=== PATIENT | female | born 1960 | race Caucasian/White ===

== ENCOUNTER 2022-03-26 08:28 | Day surgery (SDC) | payer OTHER, SELFPAY ==
[2022-03-26] VITALS (12 sets, daily range): BP systolic 115–150; BP diastolic 52–87; PULSE 66–89; RESP 14–16; TEMP 36.2–36.5; O2SAT 80–98; BMI 30.4
[2022-03-26] MEDS: LACTATED RINGERS 1000 ML 1,000 ML 100 ML IV ×5 (09:13→13:50)
[2022-03-26] MEDS: SODIUM CHLORIDE 0.9 % (FLUSH) 10 ML SYRINGE IVF (09:14)
--- NOTE | 2022-03-26 09:17 | SUR.PREOP ---
PT READY FOR SURGERY
[2022-03-26] MEDS: CEFAZOLIN 2 GM INJ IVP (10:55)
--- NOTE | 2022-03-26 11:43 | P.GSOP_ITS ---
Operative Note Date of procedure: 03/26/22 Type of Procedure: Open ventral hernia repair Procedure Description: After discussing the risks and benefits of the procedure, the patient signed informed consent.? The operative site was marked and the patient was brought to the operating room and placed on the operating table in supine position.? Care was taken to pad the patient's pressure points.?? The patient was then intubated by anesthesia.?? The operative site was then prepped and draped in the usual sterile fashion.? A time-out was then performed. A vertical incision was made above the umbilicus, over the marked hernia. Dissection was carried down into the subcutaneous tissue using cautery. The hernia sac was encountered and care was taken to not enter it. Dissection was taken down to the fascia, and the hernia sac was dissected out circumferentiall y, it was reduced. The fascial edges were then cleared circumferentially. The hernia was 2 cm in size so the decision was made to use a piece of mesh. A preperitoneal pocket was created using a combination of blunt dissection and cautery. Hemostasis appeared adequate. Once the posterior fascia was clear, a piece of medium Ventralex ST hernia mesh was placed in the preperitoneal space with care to ensure that it laid flat. This was secured into place using 2 0 PDS interrupted sutures. The tails were then trimmed and the fascial opening was closed with a running 0 Vicryl. Local anesthetic was injected into the fascia, skin and subcutaneous tissues. The incision was then closed in layers with interrupted 3-0 vicryl and with running absorbable suture. A sterile dressing was then applied. ? The patient was then woken and transported to the recovery area in stable condition. ? The patient tolerated the procedure well. Findings: 2 cm epigastric hernia with incarcerated preperitoneal fat Anesthesia: GETA Surgeon: Aydee Vuong MD Estimated blood loss (mL): 5 Condition: stable Disposition: PACU
--- NOTE | 2022-03-26 12:03 | W.ANESCHARGE ---
Anesthesia Charges Start Date/Time Anesthesia Start Date: 03/26/22 Anesthesia Start Time: 10:46 Stop Date/Time Anesthesia Stop Date: 03/26/22 Anesthesia Stop Time: 11:56 Summary Emergency: No
[2022-03-26] MEDS: OXYCODONE 5 MG TABLET PO (12:54)
--- NOTE | 2022-03-26 12:55 | W.ANESCHARGE ---
Anesthesia Charges Start Date/Time Anesthesia Start Date: 03/26/22 Anesthesia Start Time: 10:46 Stop Date/Time Anesthesia Stop Date: 03/26/22 Anesthesia Stop Time: 11:56 Summary Emergency: No
--- NOTE | 2022-04-03 15:42 | SUR.PREOP ---
preoperative document closed by this nurse. Documentation completed by Sade Castañeda RN. Closed for billing purposes. TIme based on entry to OR
== END 2022-03-26 13:51 | disposition home or self-care (01) ==
PROVIDERS: PCP Internal Medicine; Visit Provider Surgery
PROC: (CPT 49561; principal; 2022-03-26 10:00)
DX: K43.6 Other and unspecified ventral hernia with obstruction, without gangrene (principal)
CPT/HCPCS: 49561; 49568; 750; 752; A9270; C1781; J0330; J0690; J1885; J2250; J2405; J2704; J2710; J3010; J7120

== ENCOUNTER 2023-08-25 13:36 | Outpatient (CLI) | payer MEDICARE, SELFPAY ==
--- OUTSIDE RECORDS SUMMARY | 2023-08-25 13:39 | XMS_ITS | Continuity of Care Document ---
Author Name Unknown Organization Z [facility] Address [address] [place] [address] [address] [place] [address] Phone Care Team Providers Care Roller Repairer Name Role Phone Gregory SCHULTE, Fredy Unavailable Unavailable Advance Directives Directive Yes / No Effective Date File Name No Information Encounters Encounter Description Practice Location Reason(s) For Visit Diagnoses Date Provider Providers Copied on Encounter Z [facility], [address] [place] [address], [place], [address], [place] tel:[phone] [facility] No Information Gregory Daniel. [facility], [address], [place], [place], [id number] , [place]. tel:[phone] Family History Family Member Type Diagnosis Age At Onset No Information Payers Payer name Insurance type Covered libertarian ID Authoriza tion(s) No Information Social History Type Description Quantity Date Captured Comments Sex Female Smoking Status No Information Chief Complaint And Reason For Visit No Information Reason For Referral Reason For Referral No Information History Of Present Illness Encounter Date Complaint History Of Prese nt Illness No Information Functional Status Date Functional Assessmen t No Information Instructions Date Instruction Additional Infor mation No Information Assessments Type Assessment Date No Information Patient Care Teams Name Effective Dates (start - stop) Status Members No Information
--- NOTE | 2023-08-25 14:00 | CRLHL7_ITS ---
For Patients: As a result of the Century Cures Act, medical imaging exams and procedure reports are released immediately into your electronic medical record. You may view this report before your referring provider. If you have questions, please contact your health care provider. BILATERAL SCREENING MAMMOGRAM WITH COMPUTER-AIDED DETECTION TECHNIQUE: CC and MLO views were obtained. These mammographic images have been obtained using full-field digital technique. These mammographic images were interpreted with the benefit of computer-aided detection. COMPARISON FILM: 06/12/21, 05/10/19, 02/24/16. FINDINGS: There are scattered areas of fibroglandular density IMPRESSION: There is no radiographic evidence for malignancy. ASSESSMENT: BI-RADS Category 1: Negative RECOMMENDATION: Routine screening mammogram in 1 year. A lay language report of this examination will be provided to the patient. Reji Tian M.D. Diagnostic Radiologist [email or web address] MADDIE/eb / be/Dictated by: Reji Tian MD @ 08/26/2023 8:03:00 AM (Electronically Signed)
== END 2023-08-25 13:37 | disposition home or self-care (01) ==
LOC: MAMMO 13:37
PROVIDERS: PCP Internal Medicine; Visit Provider Internal Medicine
DX: Z12.31 Encounter for screening mammogram for malignant neoplasm of breast (principal)
CPT/HCPCS: 77067

== ENCOUNTER 2023-10-04 11:10 | Outpatient (CLI) | payer MEDICARE, SELFPAY ==
--- OUTSIDE RECORDS SUMMARY | 2023-10-08 10:45 | XMS_ITS | Continuity of Care Document ---
Author Name Unknown Organization Z [facility] Address [address] [place] [address] [address] [place] [address] Phone Care Team Providers Care Lambskin Trimmer Name Role Phone Gregory SCHULTE, Fredy Unavailable Unavailable Advance Directives Directive Yes / No Effective Date File Name No Information Encounters Encounter Description Practice Location Reason(s) For Visit Diagnoses Date Provider Providers Copied on Encounter Z [facility], [address] [place] [address], [place], [address], [place] tel:[phone] [facility] No Information Gregory Daniel. [facility], [address], [place], [place], [id number] , [place]. tel:[phone] Family History Family Member Type Diagnosis Age At Onset No Information Payers Payer name Insurance type Covered alliance party ID Authoriza tion(s) No Information Social History [...]
--- OUTSIDE RECORDS SUMMARY | 2023-10-08 10:45 | XMS_ITS | Clinical Summary ---
Author Name Unknown Organization [facility] Address [place], [place] [address] Care Team Providers Care Bacteriologist Medical Name Role Phone Pcp, No Primary Care Provider Unavailabl e Medications Medication Sig Dispensed Refills Start Date End Date Status BUPROPION SR 100 MG TAB take 3 tablets by mouth every am & 1 tablet in the pm 120 0 08/01/2007 Active Immunizations Name Administration Dates Next Due COVID-19 vaccine ([employer] 30mcg/0.3mL) ANNA Sanchez 04/07/2021,03/14/2021 Social History Tobacco Use Types Packs/Day Years Used Date Smoking Tobacco: Never Assessed Sex and Gender Information Value Date Recorded Sex Assigned at Not on file Gender Identity Not on file Sexual Orientation Not on file Plan of Treatment Health Maintenance Due Date Last Done Comments Tdap 1969 Depression screening for age 12+ 1970 HIV for age 15-65 1973 BMI (ht and wt on same day) for age 18+ 1976 Hepatitis C screening for ag e 18-79 1976 Tetanus booster 1978 Colonoscopy through age 75 2003 Mammogram for age 45-75 2003 Zoster (shingles) series for age 50+ (1 of 2) 2008 Lipids for age 45-75 06/11/2011 06/11/2006 DEXA/DXA scan for age 65+ 2023 Pneumococcal series for age 65+ (1 of 1 - PCV) 2023 COVID-19 vaccine series (3 - 2022- season) 2023 04/07/2021, 03/14/2021 Influenza for age 65+ 05/21/2023 Pap test for age 21-65 06/09/2026 3, 06/09/2023, 05/10/2019, Additional history exists Care Teams Bacteriologist Medical Relationship Specialty Start Date End Date Pcp, No . PCP - General 11/13/15
== END 2023-10-04 11:11 | disposition home or self-care (01) ==
LOC: NFLDREF 10-08 10:40
PROVIDERS: PCP Internal Medicine; Referring Provider Internal Medicine; Visit Provider Internal Medicine
DX: E55.9 Vitamin D deficiency, unspecified (principal); E78.5 Hyperlipidemia, unspecified; Z90.5 Acquired absence of kidney
CPT/HCPCS: 80053; 80061; 82306

== ENCOUNTER 2023-11-24 12:42 | Outpatient (CLI) | payer MEDICARE, SELFPAY ==
--- NOTE | 2023-11-24 13:00 | XR_ITS ---
Patient: HOWARD BRADLEY Facility:?[facility] Patient ID:?[id number] Site Patient ID:?[id number]. Site :?[id number] Study:?DEXA-Bone Density SPINE/BOTH HIPS-11/24/2023 1:05:22 PM Ordering Physician:KAMALA Final Report: DXA BONE MINERAL DENSITY STUDY Reason for exam: Screening. Current height (in): 62.0. Weight (lb): 180.0. Menopause age: 63. Ethnicity: White. 1. Have you had a previous hip or vertebral fracture? No. 2. Have you had any fractures during your adult life which did not result from significant trauma (e.g., auto accident)? No. 3. Did either of your parents have a hip fracture? Yes. 4. Do you smoke? No. 5. Have you ever taken Glucocorticoids? No. 6. Do you have rheumatoid arthritis? No. 7. Do you have secondary osteoporosis? No. 8. Do you drink 3 or more alcoholic drinks per day? No. 9. Are you being treated for osteoporosis? No. 10. Have you ever taken any of the following medications: Actonel, Evista, Fosamax, Miacalcin, Reclast, Boniva, Forteo, HRT (i.e. estrogen/hormone therapy), Protelos, Prolia, Vitamin D, Calcium, other ? please specify. ANSWER: Yes, vitamin D. 11. Do you have any of the following medical conditions: Anorexia or bulimia, asthma or emphysema, end stage renal disease, hyperparathyroidism, any seizure disorders, cancer, inflammatory bowel diseases, hysterectomy, other ? please specify. ANSWER: No. 12. What was your maximum height (inches)? 64. 13. Do you perform weight bearing exercise regularly? No. 14. Do you regularly consume dairy products? No. 15. Do you drink caffeinated beverages? Yes. 16. At what age did your period start? 11. 17. Are you premenopausal? No. 18. How many full term pregnancies have you had? 4. 19. Have you ever missed your period for more than 6 months in a row (not including or menopause)? No. TECHNIQUE: Bone mineral density study was performed using the [employer]. FINDINGS: The results of the study expressed as bone mineral density (BMD) are as follows: Lumbar spine L1 to L4: BMD: 0.769 g/cm2. T-score: -2.5. Z-score: -0.7. Neck Left: BMD: 0.772 g/cm2. T-score: -0.7. Z-score: 0.8. Right: BMD: 0.744 g/cm2. T-score: -0.9. Z-score: 0.6. Total Left: BMD: 0.976 g/cm2. T-score: 0.3. Z-score: 1.5. Right: BMD: 0.917 g/cm2. T-score: -0.2. Z-score: 1.1. IMPRESSION: Osteoporosis. Reji Tain M.D. Diagnostic Radiologist [email or web address] MADDIE/eb / be/Dictated by: Reji Tian MD @ 11/24/2023 1:13:00 PM Signed by:Eric Tian MD @11/25/2023 5:41:02 AM (Electronic Signature)
== END 2023-11-24 12:43 | disposition home or self-care (01) ==
LOC: RAD 12:43
PROVIDERS: PCP Internal Medicine; Visit Provider Internal Medicine
DX: Z13.820 Encounter for screening for osteoporosis (principal); M81.0 Age-related osteoporosis without current pathological fracture
CPT/HCPCS: 77080

== ENCOUNTER 2024-04-20 08:33 | Outpatient (CLI) | payer MEDICARE, SELFPAY ==
--- OUTSIDE RECORDS SUMMARY | 2024-04-20 08:34 | XMS_ITS | Clinical Summary ---
Author Organization [facility] Address [place], [place] [address] Care Team Providers Care Environmental Technology Professor Name Role Phone Pcp, No Primary Care Provider Unavailabl e Medications Medication Sig Dispensed Refills Start Date End Date Status BUPROPION SR 100 MG TAB take 3 tablets by mouth every am & 1 tablet in the pm 120 0 08/01/2007 Active Immunizations Name Administration Dates Next Due COVID-19 vaccine ([employer]Air 30mcg/0.3mL) ANNA Sanchez 04/07/2021,03/14/2021 Social History Tobacco Use Types Packs/Day Years Used Date Smoking Tobacco: Never Assessed Sex and Gender Information Value Date Recorded Sex Assigned at Not on file Gender Identity Not on file Sexual Orientation Not on file Plan of Treatment Health Maintenance Due Date Last Done Comments Tdap 1969 Depression screening for age 12+ 1970 BMI (ht and wt on same day) for age 18+ 1976 Hepatitis C screening for age 18-79 1976 Tetanus booster 1978 Colonoscopy through age 75 2003 Mammogram for age 45-75 2003 Zoster (shingles) series for age 50+ (1 of 2) 2008 Lipids for age 45-75 06/11/2011 06/11/2006 DEXA/DXA scan for age 65+ 2023 Pneumococcal series for age 65+ (1 of 1 - PCV) 2023 COVID-19 vaccine series (3 - 2022- season) 2023 04/07/2021, 03/14/2021 Influenza for age 65+ 05/21/2024 Procedures Procedure Name Priority Date/Time Associated Diagnosis Comments LIPID PANEL Timed 06/11/2006 10:19 AM CDT from Last 3 Months or Most Recently Relevant to Health Maintenance Results * (ABNORMAL) LIPID PANEL (06/11/2006 10:19 AM CDT) CHOLESTEROL,TOTAL 222(H) 110 - 199 mg/dL [facility] TRIGLYCERIDES 95 <150 mg/dL [facility] HDL CHOLESTEROL 76 >40 mg/dL [facility] CHOL/HDL RATIO 2.92 <4.51 [facility] LDL CHOLESTEROL 127 <131 mg/dL [facility] PATIENT STATUS Fasting [facility] 06/11/2006 10:1 9 AM CDT 06/11/2006 10:19 AM CDT Stacey Ann NP CHEMISTRY Performing Organization Address City/State/[facility] Co de Phone Number [facility] [address] [place] [address] from Last 3 Months or Most Recently Relevant to Health Maintenance Care Teams Environmental Technology Professor Relationship Specialty Start Date End Date Pcp, No . PCP - General 11/13/15
--- OUTSIDE RECORDS SUMMARY | 2024-04-20 08:35 | XMS_ITS | Continuity of Care Document ---
Author Organization Z [facility] Address [address] [place] [address] [address] [place] [address] Phone Care Team Providers Care Training And Development Professional Name Role Phone Gregory SCHULTE, Amidian Unavailable Unavailable Advance Directives Directive Yes / No Effective Date File Name No Information Encounters Encounter Description Practice Location Reason(s) For Visit Diagnoses Date Provider Providers Copied on Encounter Z [facility], [address] [place], [place] [address] [address], [place], [address], [place] tel:[phone] [facility] No Information Gregory Daniel. [facility], [address] [place] [address] [address], [place], [place], [id number] , [place]. tel:[phone] Family History Family Member Type Diagnosis Age [...]
--- NOTE | 2024-04-20 10:35 | W.ANESCHARGE ---
Anesthesia Charges Start Date/Time Anesthesia Start Date: 04/20/24 Anesthesia Start Time: 09:50 Stop Date/Time Anesthesia Stop Date: 04/20/24 Anesthesia Stop Time: 10:35
== END 2024-04-20 08:34 | disposition home or self-care (01) ==
LOC: OP CLINIC 08:33
PROVIDERS: PCP Internal Medicine; Visit Provider Surgery
DX: Z12.11 Encounter for screening for malignant neoplasm of colon (principal); K63.5 Polyp of colon; Z85.038 Personal history of other malignant neoplasm of large intestine; Z98.0 Intestinal bypass and anastomosis status
CPT/HCPCS: 00811; 45385; 88305; J2704

== ENCOUNTER 2025-07-17 10:20 | Outpatient (CLI) | payer MEDICARE, SELFPAY | END 2025-07-17 10:21 | disposition home or self-care (01) | PROVIDERS: PCP Internal Medicine; Visit Provider Internal Medicine | DX: E78.5 Hyperlipidemia, unspecified (principal) | CPT/HCPCS: 80053; 80061 ==